=== PATIENT | male | born 1995 | race Two or more races ===

== ENCOUNTER 2025-03-25 14:35 | Emergency (ER) | payer SELFPAY ==
[2025-03-25 15:08] VITALS: BP 134/87; PULSE 110; RESP 18; TEMP 36.8; O2SAT 96; BMI 32.4
--- NOTE | 2025-03-25 15:08 | XR_ITS ---
Examination: Hand, left Technique: Hand AP, oblique, lateral 3 views Date and time of exam: 03/25/2025, 3:25 p.m. Indication: Crush injury of the left hand COMPARISON: None FINDINGS: An acute transverse nondisplaced fracture of the third distal phalanx is present. No other acute fracture is seen. No joint dislocation. Diffuse soft tissue swelling is identified, including throughout the fingers, most notably the second and third fingers. Skin irregularities compatible with lacerations is present along the mid to distal dorsal side of the index finger, and to a milder degree along the mid dorsal aspect of the third finger. On the lateral view, there is a very small calcific type focus projecting in the volar soft tissues at the level of the fourth middle phalanx. No apparent donor site detected. IMPRESSION: Acute nondisplaced fracture of the third distal phalanx. Diffuse soft tissue swelling, soft tissue lacerations/abrasions in the dorsal size of the second and third fingers, and small indeterminate calcific type density in the volar soft tissues of the fourth digit.
[2025-03-25] MEDS: IBUPROFEN TAB 400 MG TABLET 800 MG PO (16:20)
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
== END 2025-03-25 18:00 | disposition home or self-care (01) ==
LOC: SERX 17:31
PROVIDERS: Emergency Provider Nurse Practitioner Primary Care
DX: S60.512A Abrasion of left hand, initial encounter (principal); W19.XXXA Unspecified fall, initial encounter
CPT/HCPCS: 90715; 73130; 99283; A9270